=== PATIENT | female | born 1995 | race Hispanic/Latino ===

== ENCOUNTER 2021-08-18 21:39 | Inpatient (IN) | payer MEDICAID, OTHER ==
[2021-08-18 21:59] VITALS: BMI 32.2
[2021-08-18] MEDS ORDERED: Ondansetron ODT 4 MG TAB PO PRN (23:03)
[2021-08-18] MEDS ORDERED: hydrALAZINE 20 MG/ML VIAL SLOW IVP PRN (23:03)
[2021-08-18] MEDS ORDERED: Lactated Ringer's 1,000 ML IV SCH (23:15)
[2021-08-18 23:24] LABS: Fetal Membranes Rupture No Membranes Rupture (No Rupture)
[2021-08-18] MEDS ORDERED: Acetaminophen 500 MG TAB PO PRN (23:37)
[2021-08-18] MEDS ORDERED: Ibuprofen 800 MG TAB PO PRN (23:37)
[2021-08-18] MEDS ORDERED: Promethazine HCl 25 MG/ML VIAL IM PRN (23:37)
[2021-08-18] MEDS ORDERED: Lidocaine 1% (PF) 30 ML VIAL SC PRN (23:37)
[2021-08-18] MEDS ORDERED: Butorphanol Tartrate 1 MG/ML VIAL SLOW IVP PRN (23:37)
[2021-08-18] MEDS ORDERED: Ondansetron PF 4 MG/2 ML Vial IVP PRN (23:37)
[2021-08-18] MEDS ORDERED: Methylergonovine 0.2 MG/ML VIAL IM PRN (23:37)
[2021-08-18] MEDS ORDERED: Carboprost 250 MCG/ML AMP IM PRN (23:37)
[2021-08-18] MEDS ORDERED: Misoprostol 200 MCG TAB PR PRN (23:37)
[2021-08-18] MEDS ORDERED: Calcium Gluconate 4.6 MEQ in Sodium Chloride 0.9% 100 ML IVPB PRN (23:37)
[2021-08-18] MEDS ORDERED: Magnesium Sulfate 20 gm/500 ml 20 GM/500 ML BAG ONE (23:39)
[2021-08-18] MEDS ORDERED: Betamet Acet/Betamet Na Ph 30 MG/5 ML VIAL ONE (23:39)
[2021-08-18] MEDS ORDERED: Magnesium Sulfate 20 GM/WATER 500 ML BAG IVPB SCH (23:45)
[2021-08-18] MEDS ORDERED: Penicillin G Potassium 5 MILL.UNITS in Sodium Chloride 0.9% 100 ML IVPB SCH (23:45)
[2021-08-18] MEDS: Betamet Acet/Betamet Na Ph 30 MG/5 ML VIAL IM SCH (23:56)
[2021-08-18] MEDS ORDERED: NS w/ Oxytocin 30 units 500 ML IV SCH (23:59)
[2021-08-18] MEDS ORDERED: Penicillin G 2.5 MILL.units 2.5 MILL.UNITS in Premix Bag 1 BAG IVPB SCH (23:59)
[2021-08-19 00:09] LABS: Bilirubin Neg (Negative); Blood, Urine Negative (Negative); Clarity Clear (Clear); Glucose, Urine (Dipstick) Normal (Negative); Ketone, Urine 15 mg/dL (Negative); Leukocyte 25 (Negative); Nitrite Positive (Negative); Protein, Urine (Dipstick) Negative (Neg-Trace); Urobilinogen Normal mg/dL (Less than 2)
[2021-08-19 00:12] LABS: Hemoglobin 10.8 g/dL (12.0-15.5); Mean Corpuscular HGB CONC 32.9 g/dL (32.0-36.0); Mean Corpuscular Hemoglobin 30.5 pg (27.0-33.0); Mean Corpuscular Volume 92.7 fl (81.6-98.3); Mean Platelet Volume 10.9 fl (7.4-10.4); Platelet Count 263 10x3/uL (150-450); RBC Distribution Width 12.7 % (11.5-14.5); Red Blood Cell (RBC) Count 3.54 10x6/uL (3.90-5.03); White Blood Cell (WBC) Count 10.3 10x3/uL (3.5-10.5)
[2021-08-19 00:16] LABS: RBC/HPF 0-3 HPF (0-3)
[2021-08-19 00:21] LABS: Bacteria/HPF 3+ HPF (None Seen); Squamous Epithelial 0-3 HPF (0-3); WBC/HPF 0-3 HPF (0-3)
[2021-08-19 00:22] LABS: Calcium Oxalate Crystals 3+ HPF (None Seen)
[2021-08-19 00:23] LABS: Magnesium 1.6 mg/dL (1.6-2.6)
[2021-08-19] MEDS: Lactated Ringer's 1,000 ML IV SCH ×3 (00:23→22:39)
[2021-08-19 00:44] LABS: Hep B Surf Ag Non-Reactive S/CO (NonReactive); Syphilis Antibody Nonreactive (Nonreactive); Syphilis Antibody Index 0.05 S/CO (<1.00 Non-Reactive)
[2021-08-19 00:47] LABS: HBSAg Index 0.23 S/CO (0-0.99)
[2021-08-19] MEDS: CEFAZOLIN 1 GM in Sodium Chloride 0.9% 100 ML IVPB SCH ×3 (01:05→16:58)
[2021-08-19 01:28] LABS: SARS-CoV-2 NAA Rapid Test Not Detected (NotDetected)
[2021-08-19] MEDS: Magnesium Sulfate 20 gm/500 ml 20 GM/500 ML BAG IVPB SCH ×2 (07:11→16:55)
[2021-08-19] MEDS ORDERED: Zolpidem Tartrate 5 MG TAB PO PRN (20:24)
[2021-08-19] MEDS ORDERED: Calcium Carbonate 500 MG ChewTAB PO PRN (20:43)
[2021-08-19] MEDS ORDERED: Pantoprazole 40 MG VIAL IVP SCH (20:45)
[2021-08-19] MEDS ORDERED: Metoclopramide HCl 10 MG/2 ML VIAL IVP SCH (20:45)
[2021-08-19] MEDS: Betamet Acet/Betamet Na Ph 30 MG/5 ML VIAL IM SCH (23:57)
[2021-08-20] MEDS ORDERED: Metoclopramide HCl 10 MG TAB PO SCH (07:30)
== END 2021-08-20 11:54 | disposition home or self-care (01) | DRG 831 ==
LOC: CSHLD/OP 21:39 → CSHLD 23:41
PROVIDERS: ADMIT Family Medicine; ATTEND Family Medicine
DX: O26.873 Cervical shortening, third trimester (principal); O60.03 Preterm labor without delivery, third trimester; O23.43 Unspecified infection of urinary tract in pregnancy, third trimester; N39.0 Urinary tract infection, site not specified; Z20.822 Contact with and (suspected) exposure to COVID-19; O99.613 Diseases of the digestive system complicating pregnancy, third trimester; Z3A.31 31 weeks gestation of pregnancy
CPT/HCPCS: 36415; 81003; 81015; 83735; 84112; 85027; 86780; 86850; 86900; 86901; 87081; 87340; C9113; J0595; J0690; J0702; J2540; J2765; J3475; J3490; J7120; U0002

== ENCOUNTER 2021-09-13 07:48 | Day surgery (SDC) | payer OTHER ==
[2021-09-13 08:47] VITALS: BMI 32.2
[2021-09-13] MEDS ORDERED: hydrALAZINE 20 MG/ML VIAL SLOW IVP PRN (09:38)
[2021-09-13] MEDS ORDERED: Lactated Ringer's 1,000 ML IV SCH ×2 (09:45)
[2021-09-13 10:14] LABS: Fetal Membranes Rupture No Membranes Rupture (No Rupture)
[2021-09-13 11:35] LABS: Bilirubin Neg (Negative); Blood, Urine 10 (Negative); Clarity Slightly Cloudy (Clear); Glucose, Urine (Dipstick) Normal (Negative); Ketone, Urine 5 mg/dL (Negative); Leukocyte 100 (Negative); Nitrite Positive (Negative); Protein, Urine (Dipstick) Negative (Neg-Trace); Urobilinogen Normal mg/dL (Less than 2); pH, Urine 6.5 (5.0-9.0)
[2021-09-13 11:49] LABS: Bacteria/HPF 4+ HPF (None Seen); RBC/HPF 0-3 HPF (0-3)
[2021-09-13 11:50] LABS: Mucous/LPF 1+ LPF (<2+)
[2021-09-13 13:07] LABS: Bilirubin Neg (Negative); Blood, Urine Negative (Negative); Clarity Clear (Clear); Glucose, Urine (Dipstick) Normal (Negative); Ketone, Urine 50 mg/dL (Negative); Leukocyte 25 (Negative); Nitrite Positive (Negative); Protein, Urine (Dipstick) Negative (Neg-Trace); Urobilinogen Normal mg/dL (Less than 2)
[2021-09-13 13:37] LABS: Bacteria/HPF 4+ HPF (None Seen); RBC/HPF None Seen HPF (0-3); Squamous Epithelial 0-3 HPF (0-3); WBC/HPF 0-3 HPF (0-3)
[2021-09-13] MEDS ORDERED: cefTRIAXone\\ROCEPHIN 1 GM in Sodium Chloride 0.9% 100 ML IVPB SCH (15:45)
== END 2021-09-13 17:35 | disposition home or self-care (01) ==
LOC: CSHLD/OP 07:48
PROVIDERS: ATTEND Family Medicine
DX: O47.03 False labor before 37 completed weeks of gestation, third trimester (principal); O23.43 Unspecified infection of urinary tract in pregnancy, third trimester; N39.0 Urinary tract infection, site not specified; O09.213 Supervision of pregnancy with history of pre-term labor, third trimester; O99.820 Streptococcus B carrier state complicating pregnancy; Z3A.34 34 weeks gestation of pregnancy
CPT/HCPCS: 81001; 84112; 87086; 87480; 87510; 87660; J0696; J3490